=== PATIENT | male | born 1950 ===

== ENCOUNTER 2024-11-16 11:57 | Emergency (ER) | payer SELFPAY ==
[2024-11-16 12:12] VITALS: BP 127/87; PULSE 103; TEMP 36.8; O2SAT 96
--- OUTSIDE RECORDS SUMMARY | 2024-11-16 14:18 | XMS_ITS | Continuity of Care Document ---
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 Name Role Phone Nikkie HANKS MD, Kris Crum Unavailab le Allergies, Adverse Reactions, Alerts Substance Reaction Status Criticality No Known Allergies Active No Inform ation Medications Medication Instructions Dosage Effective Dates (start - stop) Status Comments lisinopril 2.5 mg tablet take 1 tablet b y oral route every day 2.5 MG - Active Crestor 5 mg tablet take 2 tablet by oral route every day 10 MG - Active Tricor 48 mg tablet take 1 tablet by oral route every day 48 MG - Active metformin 1,000 mg tablet take 1 tablet by oral route 2 times every day with morning and evening meals 1000 MG - Active hydrochlorothiazide 25 mg tablet take 1 tablet by oral route every day 25 MG - Active Jardiance 10 mg tablet take 1 tablet by oral route every day in the morning 10 MG - Active Procedures Procedure Date YAG PC AFTER CATARACT [facility] REFILL POSTOP FOLLOW-UP VISIT [facility] Retina POSTOP FOLLOW-UP VISIT CATARACT SURG W/IOL, 1 STAGE POSTOP FOLLOW-UP VISIT POSTOP FOLLOW-UP VISIT CATARACT SURG W/IOL, 1 STAGE OFFICE/OUTPATIENT VISIT, NEW OPHTHALMIC BIOMETRY/IOL MASTER OPSCPY EXTND ON/MAC DRAW GDX Retina REFRACTION PHARMACY IMPRIMIS EYE EXAM, NEW PATIENT REFRACTION Advance Directives Directive Yes / No Effective Date File Name No Information Encounters Encounter Description Practice Location Reason(s) For Visit Diagnoses Date Provider Providers Copied on Encounter [facility], [address] [place] [address], [id number], tel:[phone] [facility] No Information 4 Nikkie Ponce. [address], [address], [place], [place], [id number], [place]. tel:[phone] Referring Provider: Maico Wooten [place], [place], [id number]. tel:[phone] [facility], [address] [place] [address], [id number], tel:[phone] [facility] No Information 4 Holly Deshpande. [address], [address], [place], [place], [id number], [place]. tel:[phone] Referring Provider: Maico Wooten [place], [place], [id number]. tel:[phone] [facility], [address] [place] [address], [id number], tel:[phone] [facility]IS TYL[facility] Post-Op (chief complaint) PseudoaphakiaE piretinal membrane (ERM) of both eyes 4 Derheimer OD Alexus. [address], [address], [place], [place], [id number], [place]. tel:[phone] Referring Provider: Maico Wooten [place], [place], [id number]. tel:[phone] [facility], [address] [place] [address], [id number], [place] tel:[phone] OPH CONSULT LUIS TYLER 1 day post op (chief complaint) Age-related nuclear cataract, right eye Jan- 4 Derheimer OD Alexus. [address], [address], [place], [place], [id number], [place]. tel:[phone] Referring Provider: Maico Wooten [place], [id number]. tel:[phone] [facility], [address] [place] [address], [id number], tel:[phone] [facility] No Information 4 Holly Deshpande. [address], [address], [place], [place], [id number], [place]. tel:[phone] Referring Provider: Maico Wooten [place], [id number]. tel:[phone] [facility], [address] [place] [address], [id number], tel:[phone] OPH CONSULT LUIS TYLER post OP (chief complaint) Pseudoaphakia Jan- 4 Derheimer OD Alexus. [address], [address], [place], [place], [id number], [place]. tel:[phone] Referring Provider: Maico Wooten [place], [id number]. tel:[phone] [facility], [address] [place] [address], [id number], tel:[phone] OPH CONSULT LUIS TYLER 1 day PO OS (chief complaint) No Information 4 Derheimer OD Alexus. [address], [address], [place], [place], [id number], [place]. tel:[phone] Referring Provider: Maico Wooten [place], [id number]. tel:[phone] [facility], [address] [place] [id number], tel:[phone] [facility] No Information 4 Holly Deshpande. [address], [address], [place], [place], [id number], [place]. tel:[phone] Referring Provider: Sivakumar Kerns, [address] [place] [address] [place], [place], [id number]. tel:[phone] OFFICE/OUTPA TIENT VISIT, [facility], [address] [place] [address], [id number], [place] tel:[phone] OPH CONSULT LUIS TYLER blurry vision (chief complaint) DM II (chief complaint) Age-related nuclear cataract, bilateralKerat oconjunctiviti s sicca, not specified as Sjogren's, bilateralOther vitreous opacities, bilateralDerma tochalasis of right upper eyelidDermatoc halasis of right lower eyelidDermatoc halasis of left upper eyelidDermatoc halasis of left lower eyelidDiabetes mellitus without complicationEp iretinal membrane (ERM) of both eyes 4 Holly Deshpande. [address], [address], [place], [place], [id number], [place]. tel:[phone] Referring Provider: Sivakumar Kerns, [address] [facility] [place], [place], [id number]. tel:[phone] [facility], [address] [place] [address], [id number], [place] tel:[phone] Oph Consult [facility] DM II (chief complaint) Diabetes Mellitus Type 2, UncomplicatedS enile nuclear sclerosisTear film insufficiency, unspecifiedVit reous FloatersBlepha ritis, unspecifiedMyo ekven 5 Luiz Montano. [address], [address], [place], [place], [id number], [place]. tel:[phone] Referring Provider: Dusty lopez, [address], [place], [place], [id number]. tel:[phone] Family History Family Member Type Diagnosis Age At Onset Mother Problem (finding) Macular degeneration Mother Problem Cataracts Problem No family history of [place] a Payers Payer name Insurance type Covered constitution party ID Tomasa hebert(s) [facility] [id number] Social History Type Description Quantity Date Captured Comments Sex Male Smoking Status No Information Chief Complaint And Reason For Visit No Information Plan Of Treatment Date Type Action Status Goal Tobacco cessation counseling completed Referral Referred To: Shabbir Kerns [address] [place], [id number] Ordered: Referrals: [facility] Providers : Talent Development AnalystShabbir Osborne ordered History Of Present Illness Encounter Date Complaint History Of Prese nt Illness Post-Op Additional infor mation: Pt presents for 1 week P/O of 2nd eye cataract Sx OD Std -1.25, PT reports that his VA OD is still slightly blurry, a lot better this week, progressively getting better, VA OS is still blurry, no pain or any other discomfort. Vtqz-[id number]-Xwfl TID OD, Pred-Brom OS BID & AT's prn OU (he thinks he might run out of both drops and will not have enough for the stipulated period)Referred by Dr. Atwood 1 day post op The 73 year old male presents for evaluation of 1 day post op Cec IOL STD/-1.25 OD. He reports mild pain at a 3 on a scale of 1-10 (10 being worst) above/behind the right eye. describes it like a bright light being shined into the eye. He notes the left eye is stable. Svjv-qyca-Pbfe TID OD- running out, needs another bottlePred-Brom OS BID & AT's prn OU Referred by Dr. Kerns post OP 1 week PO OS STN D/DIST. pt states vision is blurry. pt states that vision is still blurry and he cant see any small print. no pain or discomfort. pt states if he cant read still with his left eye he is gonna have to postpone surgery. comp gtts TID OS purple cap, ATs BID OSOD scheduled for 02/06/24 target of -1.[address] Atwood ERM OU. pt was not explained surgery plan, will like to re go over w/ DM. pt seems upset that he is not able to see close, and that he will need glasses for near vision 1 day PO OS 1 day PO OS SD/d istance. He states his VA is still blurry. No pain or discomfort. OD is scheduled on 02/06/24. STD/ Target -1.25 planned.He was referred by Dr. Kerns.H/O Macula Pucker OU. He continues to use Surgery drops as directed. Diabetic followed by Dr. Montelongo. blurry vision The 73 year old male presents for evaluation of blurry vision OU. Over the last year has noticed vision getting worse, near worse than dist. Has trouble seeing at night with bright lights. h/o puckering of mac OU per CECref. Dr. Kerns [facility]ECtopo and lenstar ordered DM II The patient is p resent for evaluation of DM II. Followed by Dr. Montelongo. Unsure A1c or BS. mac OCT ordered DM II The 64 year old male presents for evaluation of DM II in the right eye and left eye. It started about 1 year(s) ago. The symptom is constant. The condition is stable. BSL was 130 this morning. Unsure of last A1C. States that last week VA was blurred at near. Has improved since then. BSL fluctuating. BSL was 329 3 wks ago. States that he is back on a good diet and routine. Instructions Date Instruction Additional Infor mation Impression/Plan Related to Pseud oaphakia Impression/Plan Related to Epire tinal membrane (ERM) of both eyes Impression/Plan Related to Age-r elated nuclear cataract, right eye Impression/Plan Related to Pseud oaphakia Impression/Plan Related to Age-r elated nuclear cataract, left eye Impression/Plan Related to Other vitreous opacities, bilateral Impression/Plan Related to [place] tochalasis of right upper eyelid Impression/Plan Related to Kerat oconjunctivitis sicca, not specified as Sjogren's, bilateral Impression/Plan Related to Age-r elated nuclear cataract, bilateral Impression/Plan Related to Epire tinal membrane (ERM) of both eyes Impression/Plan Related to Diabe fadi mellitus without complication Impression/Plan Related to [place] tochalasis of right lower eyelid Impression/Plan Related to [place] tochalasis of left upper eyelid Impression/Plan Related to [place] tochalasis of left lower eyelid Impression/Plan - stable Related to Myopia Impression/Plan - Di scussed diagnosis in detail with patient. No treatment is required at this time. Will continue to observe condition and or symptoms. Related to Blepharitis, unspecified Impression/Plan - Di scussed diagnosis in detail with patient. No treatment is required at this time. Will continue to observe condition and or symptoms. Discussed signs and symptoms of retinal detachment. Discussed signs and symptoms of PVD/floaters. Patient instructed to call if condition gets worse. Related to Vitreous Floaters Impression/Plan - Pa tient instructed to use artificial tears as needed. Related to Tear film insufficiency, unspecified Impression/Plan - Ca taracts account for the patient's complaints. No treatment currently recommended. The patient will monitor vision changes and contact us with any decrease in vision. Related to Senile nuclear sclerosis Impression/Plan - Di abetes type II: no background retinopathy, no signs of neovascularization noted. Discussed ocular and systemic benefits of blood sugar control. Related to Diabetes Mellitus Type 2, Uncomplicated Assessments Type Assessment Date No Information
--- NOTE | 2024-11-16 14:25 | PC.NURSE ---
pt says he will come back tomorrow due to long wait times
== END 2024-11-16 14:22 | disposition left against medical advice (07) ==
DX: R05.9 Cough, unspecified (principal)
CPT/HCPCS: 99199